=== PATIENT | female | born 1980 | race Caucasian/White ===

== ENCOUNTER 2018-02-17 10:30 | Inpatient (IN) | payer OTHER ==
[~2018-02-17] VITALS: Ht 154.9 cm; Wt 63.5 kg
[~2018-02-17 10:30] MED LIST: CIPRO500 MG PO; METRONIDAZOLE500 MG PO; OMEPRAZOLE20 M1 PO
== END 2018-02-27 15:15 | disposition home or self-care (01) | DRG 329 ==
LOC: SURG 02-24 07:00 → O/R 02-24 09:08 → SURG 02-24 09:08
PROVIDERS: Surgery
PROC: 0DJD8ZZ Inspection of Lower Intestinal Tract, Via Natural or Artificial Opening Endoscopic (ICD-10-PCS; 2018-02-24)
PROC: 0DTN4ZZ Resection of Sigmoid Colon, Percutaneous Endoscopic Approach (ICD-10-PCS; principal; 2018-02-24 07:00)
DX: K57.20 Diverticulitis of large intestine with perforation and abscess without bleeding (principal); A41.9 Sepsis, unspecified organism; N84.0 Polyp of corpus uteri; R73.01 Impaired fasting glucose; B96.20 Unspecified Escherichia coli [E. coli] as the cause of diseases classified elsewhere

== ENCOUNTER 2018-04-08 19:11 | Emergency (ER) | payer OTHER ==
[~2018-04-08] VITALS: Ht 154.9 cm; Wt 62.1 kg
== END 2018-04-08 20:11 | disposition home or self-care (01) ==
LOC: ER 19:11
DX: M54.31 Sciatica, right side (principal)

== ENCOUNTER 2020-05-07 23:06 | Emergency (ER) | payer OTHER ==
[~2020-05-07] VITALS: Ht 154.9 cm; Wt 65.3 kg
[2020-05-08] MEDS ORDERED: NORFLEX100MG PO (04:26)
[2020-05-08] MEDS ORDERED: KETO10TA2 PO (04:26)
== END 2020-05-08 04:37 | disposition home or self-care (01) ==
LOC: ER 23:06
DX: R51.9 Headache, unspecified (principal)